=== PATIENT | male | born 1960 | race Caucasian/White ===

== ENCOUNTER → 2019-06-29 12:06 | Outpatient (BNVA) | payer SELFPAY | PROVIDERS: Visit Provider Nurse Practitioner Family | DX: J06.9 Acute upper respiratory infection, unspecified (principal); R09.81 Nasal congestion; B96.89 Other specified bacterial agents as the cause of diseases classified elsewhere | CPT/HCPCS: 87804 ==

== ENCOUNTER → 2019-07-15 12:44 | Outpatient (BNVA) | payer SELFPAY | PROVIDERS: Visit Provider Nurse Practitioner | DX: E11.9 Type 2 diabetes mellitus without complications (principal) | CPT/HCPCS: 80053; 80061; 83036 ==

== ENCOUNTER 2020-04-23 09:51 | Observation (INO) | payer SELFPAY ==
[2020-04-23] VITALS (18 sets, daily range): BP systolic 108–167; BP diastolic 71–109; PULSE 66–98; RESP 14–23; TEMP 36.1–37.6; O2SAT 91–99; BMI 37.6
--- NOTE | 2020-04-23 10:12 | CT_ITS ---
WS: [id number] CT ABDOMEN AND PELVIS WITH CONTRAST HISTORY: RLQ pain, concern for appendicitis TECHNIQUE: Imaging performed of the abdomen and pelvis with IV contrast. Single phase imaging of the abdomen. Coronal and sagittal reformats are submitted. All CT scans at [facility] use at least one of these dose optimization techniques: automated exposure control; mA and/or kV adjustment per patient size (includes targeted exams where dose is matched to clinical indication); or iterativ e reconstruction. IV CONTRAST: Omnipaque 300; 95 mL IV. Oral contrast: No DLP: 1630.31 mGy.cm COMPARISON: 10/04/2016 Lower thorax: Subsegmental patchy opacifications in the posterior RIGHT lower lobe and also the super ior segment of the LEFT lower lobe. Heart size is normal. No hiatal hernia. Liver/biliary system: Moderate hepatomegaly and hepatic steatosis. No bile duct dilatation. Portal ve in is patent. Gallbladder: Normal. No gallstones or wall thickening. No pericholecystic fluid. Pancreas: Normal. Spleen: Spleen is top normal to slightly enlarged at 13.8 cm. Adrenal glands: RIGHT adrenal 7 mm adrenal myelolipoma. Negative LEFT adrenal gland. Right kidney: Normal. Left kidney: Normal. Aorta: Moderate atherosclerosis with no aneurysm. Lymphadenopathy: None. Free fluid: None. GI tract: Mild inflammatory changes in the RIGHT lower quadrant. The appendix is dilated measuring 1. 3 cm and contains a central appendicolith. There is mild adjacent periappendiceal and pericecal infla mmatory disease. No abscess or rupture. No adenopathy. Abdominal wall: Small ventral abdominal wall hernia. Pelvis: No free fluid or adenopathy. Bones: Spondylitic disease. No fractures. CT/CT abdomen pelvis w con* [id number] IMPRESSION: 1. Acute appendicitis without rupture. 2. Moderate hepatic steatosis and hepatomegaly. 3. Top normal to slightly enlarged spleen. Notified Darrel Murdock MD at 04/23/2020 11:15 AM.
[2020-04-23] MEDS: ondansetron 2 mg/ML SDV 2 mL 4 MG IVP (10:45)
[2020-04-23] MEDS: morphine 4 mg/mL SDV 1 mL IVP (10:45)
[2020-04-23] MEDS: iohexol 300 mg/mL 100 mL Btl IV (10:52)
[2020-04-23 11:01] LABS: Basophils % 0.2 %; Eosinophils # 0.1 10^3/uL (0.0-0.8); Eosinophils % 0.6 %; Hematocrit 45.2 % (42.0-52.0); Hemoglobin 15.1 g/dL (11.7-16.6); Lymphocytes # 1.9 10^3/uL (0.8-4.8); Mean Corpuscular HGB Conc 33.4 g/dL (30.0-36.0); Mean Corpuscular Hemoglobin 29.3 pg (28.0-34.0); Mean Corpuscular Volume 87.6 fL (80-94); Mean Platelet Volume 10.3 fL (7.4-10.4); Monocytes # 0.8 10^3/uL (0.2-0.9); Monocytes % 9.5 %; Neutrophils % 65.5 %; Nucleated Red Blood Cells % 0 %; Platelet Count 249 10^3/cmm (130-400); Red Blood Count 5.16 10^6/uL (4.1-5.3); White Blood Count 8.1 10^3/uL (4.0-10.0)
[2020-04-23 11:17] LABS: Alanine Aminotransferase 19 U/L (0-41); Albumin Level 4.3 g/dL (3.5-5.2); Alkaline Phosphatase 61 IU/L (40-130); Anion Gap 15.5 (5-19); Aspartate Amino Transferase 16 U/L (0-40); Blood Urea Nitrogen 9 mg/dL (6-20); Calcium 9.5 mg/dL (8.5-10.5); Carbon Dioxide 26 mmol/L (22-29); Chloride 96 mmol/L (98-107); Globulin 2.9 g/dL (1.3-4.6); Glomerular Filtration Rate 86.4 mL/min (90-130); Glucose 145 mg/dL (65-115); Osmolality Calculated 277 mOsm/kg (285-295); Potassium 4.5 mmol/L (3.5-5.1); Sodium 133 mmol/L (136-145); Total Bilirubin 0.4 mg/dL (0.15-1.2); Total Protein 7.2 g/dL (6.6-8.7)
--- NOTE | 2020-04-23 11:32 | W.ED.ABDPA2 ---
HPI - Abdominal Pain General: Chief Complaint: Abdominal Pain Stated Complaint: RLQ PAIN Time Seen by Provider: 04/23/20 10:02 History of Present Illness: HPI narrative: Patient is a well-appearing 60-year-old male seen for worsening right lower quadrant abdominal pain and nausea which started last night. He rates the pain at 4 of 10 at rest and 10 of 10 with palpation or movement. He has never had any surgeries and has no allergies to medications. His last oral intake was last night when he had a piece of toast and water. He has had no liquid or medicine prior to arriving in the emergency department today. He endorses nausea but denies vomiting, fever, diarrhea, constipation, and has no known GI issues. He has not taken anything for his pain. He has no other acute complaints. Review of Systems General: Reports: 10 or more systems reviewed and unremarkable except in HPI and below PFSH ED PFSH: Medical History Controlled diabetes mellitus with hyperglycemia Gout, unspecified HTN, goal below 130/80 Mixed hyperlipidemia Seasonal allergies Surgical History History of colonoscopy 2018 History of tibial fracture ORIF @ [facility] 2019 History of total knee replacement left 2017 Family History Other Diabetes Hypertension Social History Smoking and tobacco status: never smoked Second hand smoke exposure: No Smoking risk assessment/counseling performed?: No Alcohol intake: never Desire information about alcohol rehabilitation?: No Counseling given: No Desire information about substance/drug rehabilitation?: No Counseling given: No Caregiver/support person: No Lives independently: Yes Household members: spouse Housing: House Marital status: Number of children: 2 service: No Current occupational status: employed History of recent travel: No Current gender identity: Male Physical Exam Const: COMMON NORMALS: no acute distress, patient oriented x3 and alert HENMT: COMMON NORMALS: normocephalic and atraumatic HEAD & SCALP: normocephalic and atraumatic Eye: COMMON NORMALS: Equal, round and reactive pupils present, EOMs intact bilaterally and no scleral icterus PUPIL: Yes Equal, round and reactive pupils present Resp: COMMON NORMALS: normal respiratory effort and No retractions Cardio: COMMON NORMALS: regular rate, regular rhythm and No murmurs present (Cardio) RATE: regular rate RHYTHM: regular rhythm GI: COMMON NORMALS: Normal to inspection, nondistended, normoactive bowel sounds present and Soft to palpation; negative for non-tender PALPATION: Yes Soft to palpation and Yes Tenderness to palpation present (GI) Details: RLQ Neuro: COMMON NORMALS: patient oriented x3 SENSORIUM/ORIENTATION: Yes alert Skin: COMMON NORMALS: no rashes or lesions noted GENERAL SKIN EXAM: no rashes or lesions noted Course Vital Signs: Vital signs: Vital Signs Temperature 98.3 F 04/23/20 15:30 Pulse Rate 77 04/23/20 15:30 Respiratory Rate 16 04/23/20 15:30 Blood Pressure 126/84 04/23/20 15:30 Pulse Oximetry 99 04/23/20 15:30 MDM - Abdominal Pain Lab Data: Lab results narrative: Patient remained hemodynamically stable throughout ED course. Pain is much better after receiving morphine. With acute appendicitis and CT confirms the diagnosis. He was given Zosyn and will be admitted to the general surgery service for definitive care. Labs: Lab Results 04/23/20 04/23/20 04/23/20 Range/Units 10:40 10:40 10:40 WBC 8.1 (4.0-10.0) 10^3/ uL RBC 5.16 (4.1-5.3) 10^6/u L Hgb 15.1 (11.7-16.6) g/dL Hct 45.2 (42.0-52.0) % MCV 87.6 (80-94) fL MCH 29.3 (28.0-34.0) pg MCHC 33.4 (30.0-36.0) g/dL RDW 12.0 L (12.1-15.1) % Plt Count 249 (130-400) 10^3/c mm MPV 10.3 (7.4-10.4) fL Neut % (Auto) 65.5 % Lymph % (Auto) 24.0 % Swift % (Auto) 9.5 % Eos % (Auto) 0.6 % Baso % (Auto) 0.2 % Neut # (Auto) 5.30 (1.8-7.7) 10^3/u L Lymph # (Auto) 1.9 (0.8-4.8) 10^3/u L Swift # (Auto) 0.8 (0.2-0.9) 10^3/u L Eos # (Auto) 0.1 (0.0-0.8) 10^3/u L Baso # (Auto) 0.0 (0.0-0.1) 10^3/u L Nucleated RBC % (a uto) 0 % Nucleated RBCs # 0.0 /100WBC Sodium 133 L (136-145) mmol/L Potassium 4.5 (3.5-5.1) mmol/L Chloride 96 L (98-107) mmol/L Carbon Dioxide 26 (22-29) mmol/L Anion Gap 15.5 (5-19) BUN 9 (6-20) mg/dL Creatinine 0.9 (0.7-1.2) mg/dL GFR Calculation 86.4 L (90-130) mL/min Glucose 145 H (65-115) mg/dL Calculated Osmolal ity 277 L (285-295) mOsm/k g Calcium 9.5 (8.5-10.5) mg/dL Total Bilirubin 0.4 (0.15-1.2) mg/dL AST 16 (0-40) U/L ALT 19 (0-41) U/L Alkaline Phosphata se 61 (40-130) IU/L Total Protein 7.2 (6.6-8.7) g/dL Albumin 4.3 (3.5-5.2) g/dL Globulin 2.9 (1.3-4.6) g/dL SARS-CoV-2 Ag (Rap id) Negative (Negative) Discharge Plan Discharge Patient Disposition: Admitted As Inpatient Admit Provider: Genaro Pool Coding Level of Care Code ED Packing Line Worker for Araceli Mcdowell
[2020-04-23 11:40] LABS: SARS Covid-2 Antigen Negative (Negative)
[2020-04-23] MEDS: sodium chloride 0.9% 1,000 ML 30 ML IV (12:10)
--- NOTE | 2020-04-23 12:12 | ANES.PREANE2 ---
Pre-Anesthetic Assessment Pre-Anesthetic Assessment: Height/Weight: Height 1.75 m Weight 115.666 kg Temp Pulse Resp BP Pulse Ox 98.1 F 80 18 163/94 95 04/23/20 09:56 04/23/20 11:43 04/23/20 11:43 04/23/20 11:43 04/23/20 11:43 Proposed Procedure: Operation Date: 04/23/20 15:00 Proposed Procedures p Laparoscopic Appendectomy(Not Applicable) - Genaro Pool MD Was Beta Lisa taken within 24 hours: Yes Social: Social History: No alcohol and No tobacco Exam: Pre-Anes Outpt Exam: alert, oriented x 3, clear to auscultation bilaterally and regular rate & rhythm Airway: Submandibular: WNL Cervical ROM: WNL MP: 2 Additional comments: poor dentition with multiple missing teeth Pulmonary: Pulmonary: None reported CV/HEM: CV/HEM: HTN : : None reported Hepatic: Hepatic: None reported GI: GI: None reported Metabolic: Metabolic: DM, Hyperlipidemia and Morbid obesity Comments: Gout Musc/skel: Musc/skel: None reported Neuropsych: Neuropsych: None reported Anesthetic Plan: ASA status: 3E Anesthesia: General PFSH Anesthesia PFSH: Medical History Controlled diabetes mellitus with hyperglycemia Gout, unspecified HTN, goal below 130/80 Mixed hyperlipidemia Seasonal allergies Surgical History History of colonoscopy 2018 History of tibial fracture ORIF @ [facility] 2019 History of total knee replacement left 2017 Family History Other Diabetes Hypertension Social History Smoking and tobacco status: never smoked Second hand smoke exposure: No Smoking risk assessment/counseling performed?: No Alcohol intake: never Desire information about alcohol rehabilitation?: No Counseling given: No Desire information about substance/drug rehabilitation?: No Counseling given: No Caregiver/support person: No Lives independently: Yes Household members: spouse Housing: House Marital status: Number of children: 2 service: No Current occupational status: employed History of recent travel: No Current gender identity: Male Data Anesthesia CBC & Chem 7: 04/23/20 10:40 04/23/20 10:40 Other Labs: Laboratory Results - last 48 hr 04/23/20 04/23/20 04/23/20 10:40 10:40 10:40 WBC 8.1 RBC 5.16 Hgb 15.1 Hct 45.2 MCV 87.6 MCH 29.3 MCHC 33.4 RDW 12.0 L Plt Count 249 MPV 10.3 Neut % (Auto) 65.5 Lymph % (Auto) 24.0 Schleicher % (Auto) 9.5 Eos % (Auto) 0.6 Baso % (Auto) 0.2 Neut # (Auto) 5.30 Lymph # (Auto) 1.9 Schleicher # (Auto) 0.8 Eos # (Auto) 0.1 Baso # (Auto) 0.0 Nucleated RBC % (auto) 0 Nucleated RBCs # 0.0 Sodium 133 L Potassium 4.5 Chloride 96 L Carbon Dioxide 26 Anion Gap 15.5 BUN 9 Creatinine 0.9 GFR Calculation 86.4 L Glucose 145 H Calculated Osmolality 277 L Calcium 9.5 Total Bilirubin 0.4 AST 16 ALT 19 Alkaline Phosphatase 61 Total Protein 7.2 Albumin 4.3 Globulin 2.9 SARS-CoV-2 Ag (Rapid) Negative Cardiac Studies: No Data to Display
--- NOTE | 2020-04-23 12:12 | SUR.PHASEI ---
PT TO OPS 12 AWAKE ALERT RECIEVED PER W/C FAMILY MEMBER AT BEDSIDE PT DRESSED SELF IN GOWN, ANESTHESIA AND DR BEE AT BEDSIDE
--- NOTE | 2020-04-23 12:17 | P.HP_ITS ---
Providers/Chief Complaint Admitting Physician: Genaro Pool MD Chief Complaint: RLQ PAIN History of Present Illness Chief Complaint: Belly pain History of present illness:Mr Lior De Los Santos is a 60 year old male presents to the emergency department with worsening abdominal pain that started yesterday and got worse and started shifting towards the right side of the abdomen. Associated with nausea but no vomiting and no dysuria or diarrhea.Patient was further evaluated emergency department and was found to have acute appendicitis on the CT scan. Patient otherwise denies any fevers or chills. Patient had a colonoscopy few years ago by me and there were some polyps removed. General surgery was consulted for further evaluation and intervention. Review of Systems General: Reports: 10 or more systems reviewed and unremarkable except in HPI and below Medications/Allergies Home Medications Medication Instructions Recorded Confirmed Last Taken Type cetirizine 10 mg capsule 10 mg PO DAILY 06/29/19 11/21/19 Unknown History coenzyme Q10 75 mg capsule 75 mg PO DAILY 06/29/19 11/21/19 Unknown History famotidine 20 mg tablet 20 mg PO DAILY 06/29/19 11/21/19 Unknown History Lasix 20 mg PO PRN PRN 04/23/20 04/23/20 Unknown History aspirin 81 mg PO DAILY@05 04/23/20 04/23/20 04/22/20 History fenofibrate nanocrystallized 145 mg PO DAILY@04/23/20 04/23/20 04/22/20 History lisinopril 40 mg PO DAILY@05 04/23/20 04/23/20 04/22/20 History metformin 500 mg PO BID@04/23/20 04/23/20 04/22/20 History metoprolol tartrate 25 mg PO BID@04/23/20 04/23/20 04/22/20 History Allergies Allergy/AdvReac Type Severity Reaction Status Date / Time No Known Allergies Allergy Verified 06/29/19 12:00 PFSH Acute PFSH: Medical History Controlled diabetes mellitus with hyperglycemia Gout, unspecified HTN, goal below 130/80 Mixed hyperlipidemia Seasonal allergies Surgical History History of colonoscopy 2018 History of tibial fracture ORIF @ [facility] 2019 History of total knee replacement left 2017 Family History Other Diabetes Hypertension Social History Smoking and tobacco status: never smoked Second hand smoke exposure: No Smoking risk assessment/counseling performed?: No Alcohol intake: never Desire information about alcohol rehabilitation?: No Counseling given: No Desire information about substance/drug rehabilitation?: No Counseling given: No Caregiver/support person: No Lives independently: Yes Household members: spouse Housing: House Marital status: Number of children: 2 service: No Current occupational status: employed History of recent travel: No Current gender identity: Male Vitals/I&O/Wt Last Vital Signs Temp 97.8 F 04/23/20 12:14 Pulse 76 04/23/20 12:14 Resp 16 04/23/20 12:14 BP 156/92 04/23/20 12:14 Pulse Ox 96 04/23/20 12:14 Weight last 48 hrs Weight 255 lb Physical Exam Narrative: EXAM NARRATIVE: Patient is conscious alert oriented X3 BMI 38 Head and neck examination PERRLA no masses no cervical lymphadenopathy no jaundice Cardiac examination audible S1-S2 no murmurs no gallops no arrhythmias Chest is clear bilateral,abscence of Rhonchi or wheezes,no surgical emphysema Abdomen nontender except at the right lower quadrant with maximal tenderness at McBurney's point consistent with acute appendicitis nondistended soft no organomegaly guarding or rigidity/no signs of peritonitis. Stable chronically incarcerated umbilical hernia Obese Extremities no cyanosis no clubbing no edema Data : 04/23/20 10:40 04/23/20 10:40 A&P Assessment and plan (1) Acute appendicitis: After thorough history physical examination and reviewing the chart and images with my personal interpretion of the CT scan of the abdomen pelvis, I counseled the patient for laparoscopic appendectomy possible open. Indications, risks, benefits and alternatives were all discussed with the christina ent and did agree to proceed. Rationale was carefully and clearly discussed with the patient.Appropriate informed consent have been reviewed and signed Status: Acute Attestations Medical Necessity Statement*: Observation status for pain control and IV antibiotic therapy Time Spent in Patient Care: (>than 50% of time spent in counselling and/or direct pt care on unit) . Coding Level of Care Code Acute Cement Contractor for [facility] Fwd Diagnoses Acute appendicitis K35.80
[2020-04-23] MEDS: piperacillin-tazobactam 3.375 GM in sodium chloride 0.9% (plus) 50 ML IV ×2 (13:01→18:40)
[2020-04-23] MEDS: lidocaine 2% INJ 20 mL INJECTION (13:20)
--- NOTE | 2020-04-23 14:12 | P.OP_ITS ---
Operative Report Date of procedure: April 23, 2020 Pre-op Diagnosis: Acute appendicitis Post-op diagnosis: other (Chronic incarcerated umbilical hernia with omental fat and acute retrocecal appendicitis with suppuration) Procedure Done: Laparoscopic appendectomy and open umbilical hernia repair primarily done Specimens removed/disposition: Umbilical hernial content Appendix Surgeon: Genaro Pool Butadiene Convertor Operator: Surgical karly Triplett Circulating nurse Ronald Anesthesia: General (health and physical education teacher Yanique) Estimated blood loss (mL): 15 Condition: stable Disposition: observation Brief History: After thorough history physical examination and reviewing the chart and images with my personal interpretion, I counseled the patient for laparoscopic appendectomy possible open. Indications, risks, benefits and alternatives were all discussed with the patient and did agree to proceed. Rationale was carefully and clearly discussed with the patient.Appropriate informed consent have been reviewed and signed Procedure: Patient after being identified in the holding area and asked to void urine, and informed consent per chart ,patient was then taken back to the OR placed in supine position got intubated by anesthesia left arm was tucked tucked ,Timeout was done verifying the patient's name/date of /planned procedure and destination after the procedure, all were in agreement., preoperative antibiotics administered per protocol. prep and drape of the abdomen was done under the usual sterile technique. Started by longitudinal skin incision supraumbilical chronic incarcerated omental fat was appreciated dissection was done and transfixing 2-0 silk sutures were used part of the omental fat was excised and sent for permanent pathology at this point there were no adhesions and I was able to place a Crump trocar technique safe entry to the abdominal cavity was achieved verified by using 10 mm zero degree laparoscopy, switched to a 30? scope under direct visualization a suprapubic 5 mm trocar was inserted followed by another 5 mm trocar inserted in the left lower quadrant, I was able to position the patient in an T Hodges and left side down, dissection of the retrocecal acutely inflamed appendix with suppuration there was some adhesions towards the lateral pelvic wall that was taken down by sharp and blunt dissection, attention was deviated to the healthy base of the appendix where I had to switch the camera to 5 mm 30? scope got introduced through the left lower quadrant and through the Crump trocar under direct visualization a GI stapler 45 mm blue load was applied at the healthy part of the base of the appendix, and an Endoloop PDS was applied onto the mesoappendix for control , the appendix was then retrieved in an Endo Catch bag, final survey was done of the abdomen and pelvis , irrigation with warm saline, and suction was obtained, were mercury fluid like in the pelvis due to reaction from the inflamed appendix. Multiple 5 mm clips were applied onto the mesoappendix as well as the appendectomy staple line and a right lateral pelvic wall for minimal oozing. Adhesions towards the left side of the colon at the sigmoid region was appreciated but that was avoided during trocar placement Final look laparoscopy was done showing no other abnormalities or injuries, all trocars were taken out under direct visualization then the supraumblical hernial defect site was closed by multiple interrupted figure of 8 PDS sutures under direct vision, followed by 3-0 Vicryl continuous fashion,followed by skin closure using skin nikki all trocar site incisions. infiltration of local lidocaine 2% was done to all incision sites.Dry dressing was applied. Count was completed at the end of the procedure for Louise , sponges and instruments Patient tolerated the procedure well and was transferred to the recovery area after extubation. I was present for the whole entire procedure
[2020-04-23] MEDS: sodium chloride 0.9% 1,000 ML 100 ML IV (15:16)
--- NOTE | 2020-04-23 16:40 | ANE.PACU2 ---
Inpatient post-anesthesia follow up: Airway intact: Yes Vital signs: Temperature 98.3 F Pulse Rate [Monito r] 89 Pulse Rate 77 Respiratory Rate 16 Blood Pressure [Ri ght Arm] 167/109 Blood Pressure 126/84 Pulse Oximetry 99 Oxygen Delivery Me thod Nasal Cannula Oxygen Flow Rate 3 Fraction of Inspir ed Oxygen Hydration adequate: Yes Nausea and vomiting: No Pain level: 4 Mental status: Baseline
[2020-04-23 17:37] LABS: Glucose Point of Care 146 mg/dL (70-110)
[2020-04-23] MEDS: morphine 4 mg/mL SDV 1 mL 2 MG IVP (18:54)
[2020-04-24] VITALS (7 sets, daily range): BP systolic 119–170; BP diastolic 74–95; PULSE 59–80; RESP 18; TEMP 36.4–37.4; O2SAT 93–95
[2020-04-24] MEDS: HYDROcodone-acetaminophen 5-325 mg Tablet 1 TAB PO ×3 (01:30→15:36)
[2020-04-24] MEDS: piperacillin-tazobactam 3.375 GM in sodium chloride 0.9% (plus) 50 ML IV ×2 (01:30→11:41)
[2020-04-24 02:41] LABS: Hemoglobin 12.8 g/dL (11.7-16.6)
[2020-04-24] MEDS: sodium chloride 0.9% 1,000 ML 100 ML IV (03:03)
[2020-04-24 03:14] LABS: Anion Gap 14.8 (5-19); Blood Urea Nitrogen 8 mg/dL (6-20); Calcium 8.7 mg/dL (8.5-10.5); Carbon Dioxide 25 mmol/L (22-29); Chloride 95 mmol/L (98-107); Glomerular Filtration Rate 86.4 mL/min (90-130); Glucose 164 mg/dL (65-115); Osmolality Calculated 274 mOsm/kg (285-295); Potassium 3.8 mmol/L (3.5-5.1); Sodium 131 mmol/L (136-145)
--- NOTE | 2020-04-24 06:30 | P.SS_ITS ---
Short Stay Summary Providers Date of Admit/Discharge: 04/24/20 Attending Provider: Genaro Pool MD Chief Complaint: RLQ PAIN HPI History of Present Illness Mr Lior De Los Santos is a 60 year old male presents to the emergency department with worsening abdominal pain and was found to have acute appendicitis on the CT scan. Patient was taken for surgery and undergone laparoscopic appendectomy and open umbilical hernia repair primarily without mesh. Review of Systems General: Reports: 10 or more systems reviewed and unremarkable except in HPI and below Home Meds/Allergies Home Medications and Allergies Home Medications Medication Instructions Recorded Confirmed Type cetirizine 10 mg capsule 10 mg PO DAILY@05 06/29/19 04/23/20 History coenzyme Q10 75 mg capsule 75 mg PO DAILY@06/29/19 04/23/20 History famotidine 20 mg tablet 20 mg PO DAILY@06/29/19 04/23/20 History Lasix 20 mg PO PRN PRN 04/23/20 04/23/20 History aspirin 81 mg PO DAILY@04/23/20 04/23/20 History fenofibrate nanocrystallized 145 mg PO DAILY@04/23/20 04/23/20 History lisinopril 40 mg PO DAILY@04/23/20 04/23/20 History metformin 500 mg PO BID@04/23/20 04/23/20 History metoprolol tartrate 25 mg PO BID@,04/23/20 04/23/20 History Allergies Allergy/AdvReac Type Severity Reaction Status Date / Time No Known Allergies Allergy Verified 06/29/19 12:00 PFSH Acute PFSH: Medical History (Updated 04/24/20 @ 08:18 by Genaro Pool MD) Controlled diabetes mellitus with hyperglycemia Gout, unspecified HTN, goal below 130/80 Mixed hyperlipidemia Seasonal allergies Surgical History History of colonoscopy 2018 History of tibial fracture ORIF @ [facility] 2019 History of total knee replacement left 2017 Family History Other Diabetes Hypertension Social History Smoking and tobacco status: never smoked Second hand smoke exposure: No Smoking risk assessment/counseling performed?: No Alcohol intake: never Desire information about alcohol rehabilitation?: No Counseling given: No Desire information about substance/drug rehabilitation?: No Counseling given: No Caregiver/support person: No Lives independently: Yes Household members: spouse Housing: House Marital status: Number of children: 2 service: No Current occupational status: employed History of recent travel: No Current gender identity: Male Vitals/I&O/Wt Last Vital Signs Temp 97.7 F 04/24/20 04:51 Pulse 75 04/24/20 05:46 Resp 18 04/24/20 04:51 BP 149/95 04/24/20 04:51 Pulse Ox 94 04/24/20 04:51 04/23/20 04/23/20 04/24/20 14:59 22:59 06:59 Intake Total 550 / 550 50 / 600 1500 / 2100 Output Total 400 / 410 1900 / 2310 Balance 540 / 540 -350 / 190 -400 / -210 Weight last 48 hrs Weight 255 lb Physical Exam Narrative: EXAM NARRATIVE: Patient is conscious alert oriented X3 BMI 37.7 Head and neck examination PERRLA no masses no cervical lymphadenopathy no jaundice Cardiac examination audible S1-S2 no murmurs no gallops no arrhythmias Chest is clear bilateral,abscence of Rhonchi or wheezes,no surgical emphysema Abdomen nontender except mildly at the incision sites, nondistended soft no organomegaly guarding or rigidity/no signs of peritonitis Extremities no cyanosis no clubbing no edema Hospital Course Discharge Summary 60 years old gentleman undergone uneventful laparoscopic appendectomy and open umbilical hernia repair without mesh,patient continues to have good urine output and tolerating p.o. intake. Pain is under control and vital signs are stable except for some hypertension and blood pressure medication has been resumed. Appropriate glycemic control and patient was placed on sliding scale of insulin. Patient is encouraged to ambulate and has been having good urine output and passing gas. Will advance diet as tolerated and plan to discharge home today on p.o. antibiotics and pain medications. With the plan to follow-up in surgery office in 2 weeks. SSS Data Data Completed and Pending: Completed Studies During Hospitalization Category Date Time Status CT abdomen pelvis w con* [id number] Urge nt Cat Scan 04/23/20 10:12 Completed Pending at discharge Category Date Time Status ES surgery / GI i mages Routine Exams 04/23/20 12:15 Taken Basic Metabolic P magy AM LABS Lab 04/25/20 04:00 Ordered Basic Metabolic P magy AM LABS Lab 04/26/20 04:00 Ordered Hemoglobin and He matocrit AM LABS Lab 04/25/20 04:00 Ordered Hemoglobin and He matocrit AM LABS Lab 04/26/20 04:00 Ordered Pathology: Surgic al [PTH] Routine Pth 04/23/20 13:42 Received Diagnoses at Discharge Discharge Diagnosis (1) Acute appendicitis: Status: Acute Permanent problem details: Condition resolved and simple to be discharged on oral antibiotics and pain medication (2) Umbilical hernia without mention of obstruction or gangrene: Status: Resolved Permanent problem details: Restrictions with regard to weight lifting, first weeks after surgery nothing more than 10 pounds in 6 weeks to follow not more than 25 pounds. Discharge Plan Discharge Patient Disposition: Home Condition: Stable Prescriptions: [place] 5-325 mg tablet 1 tab PO Q6H PRN (Reason: pain) Qty: 28 RF: 0 Augmentin 875-125 mg tablet 1 tab PO Q12H 7 Days Qty: 14 RF: 0 Continued Zyrtec 10 mg capsule 10 mg PO DAILY@05 RF: 0 famotidine [Pepcid] 20 mg tablet 20 mg PO DAILY@05 RF: 0 Ultra CoQ10 75 mg capsule 75 mg PO DAILY@05 RF: 0 aspirin 81 mg Tablet,Chewable 81 mg PO DAILY@05 RF: 0 metformin 500 mg tablet 500 mg PO BID@,17 RF: 0 Lasix 20 mg tablet 20 mg PO PRN PRN (Reason: edema) RF: 0 lisinopril 40 mg tablet 40 mg PO DAILY@05 RF: 0 metoprolol tartrate 25 mg tablet 25 mg PO BID@,17 RF: 0 fenofibrate nanocrystallized 145 mg tablet 145 mg PO DAILY@05 RF: 0 Discharge Orders: Discharge Order (Routine); Ordered 04/24/20 Ordered By: Genaro Pool Referrals: Genaro Pool MD [Physician] - (Please call Monday to make an appointment to be seen within [address] Pool office. ) Discharge Diet: Advance as tolerated Discharge Activity: Limit activity as instructed Patient Instructions: Hydrocodone/Acetaminophen (By mouth), Amoxicillin/Clavulanate Potassium (By mouth), Laparoscopic Appendectomy (DC) Activity Restrictions/Additional Instructions: 1. Patient can shower after 48 hours from surgery 2. Remove Dermabond 7 to 10 days after surgery, if there is a secondary dressing can take down after 48 hours. 3. Up and walking as tolerated 4. Do lift more than 5 pounds first 2 weeks after surgery and not more than 25 pounds 6 to 8 weeks after surgery. 5. Do not operate heavy machinery or drive while using pain medications. 6.Contact the office or return to the ER for worsening nausea vomiting fevers or chills, or noticing any redness around incision sites or discharge. Attestations Medical Necessity Statement*: Observation status for pain control and intravenous antimicrobial therapy Time Spent in Patient Care*: less than 30 min Specific Discharge Activities: Specific discharge activities: educating patient and educating and/or supporting family/caregiver Status at Discharge: Cognitive status at discharge: cognitively intact , Behavioral status at discharge: cooperative , Functional status at discharge: independent ambulation Overall status at discharge: patient is progressing back to baseline Quality Metrics Clinical Quality Measures: During this hospital stay, did patient experience: None Coding Level of Care Code Acute Prepared Foods Supervisor for [facility] Fwd Diagnoses Acute appendicitis K35.80 Umbilical hernia without mention of obstruction or gangrene K42.9
[2020-04-24 06:31] LABS: Glucose Point of Care 179 mg/dL (70-110)
[2020-04-24] MEDS: lisinopril 20 mg Tablet 40 MG PO (09:02)
--- NOTE | 2020-04-24 09:45 | PC.CHAP ---
Pastoral Care Encounter/Spiritual Assessment Type of Contact [] Declined cellophane wrapping examiner visit [] Patient/Family/Request visit [] Outpatient visit [] Follow-up visit [] Physician referral [] Code/Alert [] Routine visit [] Staff referral [] Actively dying [] Patient sleeping [] Family support [] [] Out of room [] Palliative care [] [] Receiving care in room [] Pre-surgical visit [] Trauma [] Long length of stay [] ICU visit [] Other: Relational/Emotional Strength [x] Patient feels connected with others/family/visitors/staff [] Distress [] Loneliness/isolation [] Abandonment Spirituality of Patient [x] Person of Nedra [] Attends Jain of their Nedra [] Believes in Prayer [] Reads Bible or Rastafari materials [] There are Spiritual issues to be addressed Volunteer Services Supervisor Interventions [x] Prayer [x] Active listening [] Non-anxious presence [] Spiritual/emotional support [] Crisis/trauma care [] Spiritual counseling [] Bereavement support [] Provided bereavement packet [] Provided Bible/devotional materials [] Provided toy/stuffed animal, coloring book to patient or family member [] Provided Communion [] Anointing/[place] [] Salvation []x Completed spiritual assessment [] Other: Impact on Illness or Injury [] Angry [] Fearful [] Anxious [] Often cries [] Exhaustion [] Unable to work [] Unable to attend muslim [] Unable to walk/stand [] Unable to read [] Unable to drive [] Unable to eat/drink [] Unable to sleep [] Unable to be with family [] Patient intubated [] Other: Summarywants to go home Time spent with patient 10 min
== END 2020-04-24 17:57 | disposition home or self-care (01) ==
LOC: ER 11:43 → MEDSURG 11:54
PROVIDERS: Admitting Provider Surgery; Emergency Provider Student in an Organized Health Care Education/Training Program; Visit Provider Surgery
PROC: 0DTJ4ZZ Resection of Appendix, Percutaneous Endoscopic Approach (ICD-10-PCS; CPT 44970; principal; 2020-04-23 15:00)
PROC: (CPT 44970; 2020-04-23 15:00)
DX: K35.80 Unspecified acute appendicitis (principal); K42.9 Umbilical hernia without obstruction or gangrene; E11.9 Type 2 diabetes mellitus without complications; Z79.84 Long term (current) use of oral hypoglycemic drugs; I10 Essential (primary) hypertension; E78.2 Mixed hyperlipidemia; Z79.82 Long term (current) use of aspirin; E66.01 Morbid (severe) obesity due to excess calories; Z68.37 Body mass index [BMI] 37.0-37.9, adult
CPT/HCPCS: 44970; 49585; 12345; 36415; 36416; 74177; 80048; 80053; 82962; 85014; 85018; 85025; 87426; 88302; 88304; 96361; 96365; 96366; 96372; 96375; 99283; 99285; G0378; J0131; J0330; J1815; J2270; J2370; J2405; J2543; J2704; J2710; J3010; J3490; J7030; Q9967

== ENCOUNTER 2020-05-20 10:00 | Outpatient (CLI) | payer SELFPAY ==
--- NOTE | 2020-05-22 09:51 | ONC CON_ITS ---
Dr. Blanco New Patient Note Patient: Lior De Los Santos Unit #: [id number]: 1960 Dicatated By: Chela Blanco M.D.Date of Visit: May 20, 2020 Onc MED New Patient/Consult Referring Physician: Dr. JEANIE BEE M.D. History of Present Illness: Mr. Lior De Los Santos, is a 60-year-old gentleman with a history of chronic but off and on diarrhea for the last 4 years or more, initially it was thought could be due to Metformin and when Metformin was stopped diarrhea got better and as per patient Metformin was restarted and he continued to have off and on diarrhea and then again Metformin was discontinued recently but diarrhea did not improve. Patient denies any mucus or blood in his stools, denies any abdominal pain, denies any fever or chills, as per patient usually is 3-4 loose BMs per day. As per patient he was recently diagnosed with acute appendicitis for which on April 23, 2020 he underwent laparoscopic appendicectomy and umbilical hernia repair without mesh placement. Patient tolerated procedure well and pathology noticed incidental finding of well-differentiated neuroendocrine tumor size but 0.5 cm in greatest dimension with clear surgical margins with very low proliferative index e.g 0 mitosis noted in 42 high-power everett, no lymphovascular involvement, no lymph node was submitted so it was pT1 (less than 2 cm), NX Patient has recovered very well from the surgery denies any specific complaints today no abdominal pain, no fever chills, no nausea or vomiting, no jaundice, no facial flushing, no bronchial wheezing, no fluctuating hypertension but patient has history of hypertension which is under control with the current antihypertensive Patient denies smoking or alcohol use and his past medical history significant for noninsulin-dependent diabetes mellitus, gout, mixed hyperlipidemia. Last colonoscopy was done in 2018 was unremarkable History of tibial fracture status post ORIF in 2019 and history of total knee replacement left knee in 2017. Patient never smoked and no alcohol use Past Medical History: Mr. Meneses medical history consists of gout, hyperlipidemia, hypertension, type II diabetes, and umbilical hernia. Past Surgical History: Mr. Meneses surgical/procedural history consists of appendectomy, ORIF tibia in 2019, colonoscopy in 2018, and left total knee replacement in 2017. Medications: Aspirin 1 Tablet (of 81 mg) Tablet, enteric coated Oral daily, Cetirizine HCl 1 Tablet (of 10 mg) Oral daily, Famotidine 1 Tablet (of 20 mg) Oral b.i.d., Fenofibrate 1 Tablet (of 145 mg) Oral daily, Lisinopril 1 Tablet (of 40 mg) Oral daily, metFORMIN HCl 1 Tablet (of 500 mg) Oral b.i.d., Metoprolol Tartrate 1 Tablet (of 25 mg) Oral b.i.d., Vitamin B12 1 Tablet Oral daily, Vitamin C 1 Capsule Oral daily, Vitamin D3 3 Tablet (of 25 mcg ) Oral daily, Zinc 1 Tablet Oral daily Allergies: No Known Allergies. Social History: Mr. De Los Santos is . Mr. De Los aSntos has never smoked. He has no history of drinking. Family History: There is no documented family history. Review Of Symptoms: Constitutional - Appetite is good and weight is stable. No fever or hot flashes. nergy level is fair. Positive for night sweats, ENMT - Positive for sinus congestion/drainage. No mouth sores. No sore throat or difficulty swallowing, Hematologic/Lymphatic - No abnormal bruising or bleeding, Respiratory - No shortness of breath. No cough. No pleuritic pain or hemoptysis, Cardiovascular - No angina pain. No palpitations, Gastrointestinal - No nausea or vomiting. No heartburn or acid reflux. Positive for diarrhea, no constipation. No blood in the stool or black stools, Genitourinary (M) - No dysuria or hematuria. No urinary frequency. No urgency or incontinence, Musculoskeletal - No joint or bone pain, Neurologic - No headache or dizziness. No numbness or tingling. No other focal neurologic symptoms, Psychiatric - No anxiety or depression. No insomnia. Pt reports high stress levels at present. Vital Signs: Performed on May 20, 2020 11:16: 0, 37.75 (HIGH), 2.29 sq.m, 69 in, 96 %, 71 /min, 16 /min, 150/90 mm(hg) (HIGH), 98.0 F (LOW), and 255.6 lbs (HIGH). Performance Status: 0 - Fully active, able to carry on all predisease activities without restrictions. (ECOG) Physical Examination: ENMT - No mouth sores, no thrush, no jaundice, Respiratory - Lungs are clear to auscultation, Cardiovascular - Regular rate and rhythm of heart, Abdomen - Soft, bowel sounds present, Extremities - No visible edema or rash. Lab/Imaging: Most recent lab results are not available for this patient. 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 0 mitosis noted in 42 high-power everett, very low KI 67 index. No lymphovascular invasion seen, clear surgical margins pT1 (less than 2 cm), it was an incidental finding so no lymph nodes were submitted, NX, stage I Chronic diarrhea, etiology unclear questionable biochemically active carcinoid Hypertension Plan: Discussed with patient regarding his pathology, patient was recently diagnosed with well-differentiated neuroendocrine tumor involving distal part of his appendix, as mentioned earlier, patient underwent laparoscopic appendicectomy for acute appendicitis. Case was discussed with pathology, patient has a very low-grade, subcentimeter, well-differentiated neuroendocrine tumor with very low proliferative index and clear surgical margins will make him very low risk for recurrence, as per NCCN guidelines follow-up in [address] scan or observation may be appropriate But concern is his chronic diarrhea and etiology is unclear, initially, it was thought due to Metformin and it did improve with discontinuation of Metformin, And recur with initiation of Metformin ,as per patient, recently when Metformin was discontinued his Diarrhea did not improve, so there is a possibility, he may have biochemically active neuroendocrine lesion. So we will consider work-up including serum serotonin level, chromogranin A level, 24-hour urine for 5-HIAA, gastrin level and if it shows any abnormality, then will consider dotatate scan to identify any other lesions and may consider Sandostatin to control his diarrhea otherwise will observe and see him 6 to 12 months for follow-up Discussed with patient and he expressed full understanding and he will return to clinic in 2 weeks with CBC CMP and with above-mentioned work-up Signed By: Chela Blanco M.D. <<Signature on File>>
[2020-05-24 15:54] LABS: Chromogranin A 140 ng/mL (25-140); Serotonin Whole Blood 105 ng/mL (56-244)
[2020-05-26 19:27] LABS: 24 Hour Urine Volume 1400 mL; 5-HIAA, 24 Hour Urine 4.3 mg/24 h (<=6.0)
== END 2020-05-20 10:01 | disposition home or self-care (01) ==
LOC: ONCMED 10:07
PROVIDERS: PCP Nurse Practitioner; Visit Provider Internal Medicine Hematology & Oncology
DX: C7A.8 Other malignant neuroendocrine tumors (principal); K52.9 Noninfective gastroenteritis and colitis, unspecified; I10 Essential (primary) hypertension
CPT/HCPCS: 36415; 82941; 83497; 84260; 86316; 99204

== ENCOUNTER 2020-05-28 05:40 | Outpatient (CLI) | payer SELFPAY ==
--- NOTE | 2020-05-28 16:46 | ONC FU_ITS ---
Dr. Blanco follow up note Patient: Lior De Los Santos Unit #: [id number]: 1960 Dicatated By: Chela Blanco M.D.Date of Visit:May 28, 2020 Onc Med Follow-up/Prog Note History of Present Illness: Mr. Lior De Los Santos, is a 60-year-old gentleman with a history of chronic but off and on diarrhea for the last 4 years or more, initially it was thought could be due to Metformin and when Metformin was stopped diarrhea got better and as per patient Metformin was restarted and he continued to have off and on diarrhea and then again Metformin was discontinued recently but diarrhea did not improve. Patient denies any mucus or blood in his stools, denies any abdominal pain, denies any fever or chills, as per patient usually is 3-4 loose BMs per day. As per patient he was recently diagnosed with acute appendicitis for which on April 23, 2020 he underwent laparoscopic appendicectomy and umbilical hernia repair without mesh placement. Patient tolerated procedure well and pathology noticed incidental finding of well-differentiated neuroendocrine tumor size but 0.5 cm in greatest dimension with clear surgical margins with very low proliferative index e.g 0 mitosis noted in 42 high-power [place], no lymphovascular involvement, no lymph node was submitted so it was pT1 (less than 2 cm), NX, Lab work-up done on May 20, 2020 showed creatinine 105 normal being 56-244, chromogranin A level 140, normal being 25-1 40, 24-hour urine for 5-HIAA 4.3, gastrin level 25, normal being less than 100 Patient has recovered very well from the surgery denies any specific complaints today no abdominal pain, no fever chills, no nausea or vomiting, no jaundice, no facial flushing, no bronchial wheezing, no fluctuating hypertension but patient has history of hypertension which is under control with the current antihypertensive Patient denies smoking or alcohol use and his past medical history significant for noninsulin-dependent diabetes mellitus, gout, mixed hyperlipidemia. Last colonoscopy was done in 2018 was unremarkable History of tibial fracture status post ORIF in 2019 and history of total knee replacement left knee in 2017. Patient never smoked and no alcohol use Came for follow-up, denies any specific complaints except off and on diarrhea but improving, no melena or hematochezia, no nausea or vomiting,, no jaundice, no abdominal pain, no night sweats, no wheezing, no facial flushing, no uncontrolled hypertension, no weight loss. Medications: Aspirin 1 Tablet (of 81 mg) Tablet, enteric coated Oral daily, Cetirizine HCl 1 Tablet (of 10 mg) Oral daily, Famotidine 1 Tablet (of 20 mg) Oral b.i.d., Fenofibrate 1 Tablet (of 145 mg) Oral daily, Lisinopril 1 Tablet (of 40 mg) Oral daily, metFORMIN HCl 1 Tablet (of 500 mg) Oral b.i.d., Metoprolol Tartrate 1 Tablet (of 25 mg) Oral b.i.d., Vitamin B12 1 Tablet Oral daily, Vitamin C 1 Capsule Oral daily, Vitamin D3 3 Tablet (of 25 mcg ) Oral daily, Zinc 1 Tablet Oral daily Allergies: No Known Allergies. Review of Systems: Constitutional - Appetite is good and weight is stable. No fever or hot flashes. nergy level is fair. Positive for night sweats, ENMT - Positive for sinus congestion/drainage. No mouth sores. No sore throat or difficulty swallowing, Hematologic/Lymphatic - No abnormal bruising or bleeding, Respiratory - No shortness of breath. No cough. No pleuritic pain or hemoptysis, Cardiovascular - No angina pain. No palpitations, Gastrointestinal - No nausea or vomiting. No heartburn or acid reflux. Positive for diarrhea, no constipation. No blood in the stool or black stools, Genitourinary (M) - No dysuria or hematuria. No urinary frequency. No urgency or incontinence, Musculoskeletal - No joint or bone pain, Neurologic - No headache or dizziness. No numbness or tingling. No other focal neurologic symptoms, Psychiatric - No anxiety or depression. No insomnia. Pt reports high stress levels at present. Vital Signs: Performed on May 28, 2020 08:18 Height - 69.00 in Weight - 258.8 lbs (HIGH) BSA - 2.30 sq.m BMI - 38.22 (HIGH) Temperature - 97.0 F (LOW) Pulse - 67 /min Respiration - 18 /min BP - 165/95 mm(hg) (HIGH) O2 Sat - 96 % Pain - 0 Performance Status: 0 - Fully active, able to carry on all predisease activities without restrictions. (ECOG) Physical Examination: ENMT - No mouth sores, no thrush, no jaundice, Respiratory - Lungs are clear to auscultation, Cardiovascular - Regular rate and rhythm of heart, Abdomen - Soft, bowel sounds Present, Extremities - No visible edema. 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 0 mitosis noted in 42 high-power [place], very low KI 67 index. No lymphovascular invasion seen, clear surgical margins pT1 (less than 2 cm), it was an incidental finding so no lymph nodes were submitted, NX, stage I Chronic diarrhea, etiology unclear ? biochemically active carcinoid But it was ruled out with a normal biochemical profile eg serotonin, chromogranin A level, gastrin level and 24-hour urine for 5-HIAA was within normal range Hypertension Plan: Discussed with patient regarding his labs serotonin, chromogranin A, gastrin and 24-hour urine 5-HIAA level, came back within normal range so carcinoid being etiology of his diarrhea very unlikely so it could be due to malabsorption or secretory type, patient said he will discuss with his PMD regarding referral to gastroenterology for evaluation if there is a worsening of diarrhea. As per NCCN guidelines well-differentiated subcentimeter carcinoid with clear surgical margins with no lymphovascular involvement, no further testing is needed except CT scan of abdomen pelvis and 1 year. As per patient he is scheduled to see Dr. Pool in 1 year for follow-up colonoscopy and he would request him to get his CT scan of abdomen at the same time. And we will see him on as-needed basis Signed By: Chela Blanco M.D. <<Signature on File>>
== END 2020-05-28 05:41 | disposition home or self-care (01) ==
LOC: ONCMED 05:42
PROVIDERS: PCP Nurse Practitioner; Visit Provider Internal Medicine Hematology & Oncology
DX: C7A.8 Other malignant neuroendocrine tumors (principal); K52.9 Noninfective gastroenteritis and colitis, unspecified; I10 Essential (primary) hypertension
CPT/HCPCS: G0463

== ENCOUNTER → 2020-10-15 08:08 | Outpatient (BNVA) | payer SELFPAY | PROVIDERS: PCP Nurse Practitioner; Visit Provider Nurse Practitioner | DX: E11.65 Type 2 diabetes mellitus with hyperglycemia (principal); E78.2 Mixed hyperlipidemia; I10 Essential (primary) hypertension | CPT/HCPCS: 80053; 80061; 83036; 83721 ==

== ENCOUNTER → 2021-01-26 08:46 | Outpatient (BNVA) | payer SELFPAY | PROVIDERS: PCP Nurse Practitioner; Visit Provider Dermatology | DX: Z01.89 Encounter for other specified special examinations (principal) | CPT/HCPCS: 83721 ==

== ENCOUNTER → 2021-06-03 09:10 | Outpatient (BNVA) | payer SELFPAY | PROVIDERS: PCP Nurse Practitioner; Visit Provider Urology | DX: R39.9 Unspecified symptoms and signs involving the genitourinary system (principal); R97.20 Elevated prostate specific antigen [PSA] | CPT/HCPCS: 81003; 84153 ==

== ENCOUNTER → 2022-01-03 18:04 | Outpatient (BNVA) | payer SELFPAY | PROVIDERS: PCP Nurse Practitioner; Visit Provider Family Medicine | DX: M25.571 Pain in right ankle and joints of right foot (principal); S99.911A Unspecified injury of right ankle, initial encounter; B02.9 Zoster without complications | CPT/HCPCS: 73600 ==

== ENCOUNTER → 2022-01-25 16:31 | Outpatient (BNVA) | payer SELFPAY | PROVIDERS: PCP Nurse Practitioner; Visit Provider Nurse Practitioner | DX: E78.2 Mixed hyperlipidemia (principal); I10 Essential (primary) hypertension; E11.65 Type 2 diabetes mellitus with hyperglycemia | CPT/HCPCS: 80053; 80061; 83036; 83721 ==

== ENCOUNTER → 2022-08-22 08:02 | Outpatient (BNVA) | payer BC, SELFPAY | PROVIDERS: PCP Nurse Practitioner; Visit Provider Nurse Practitioner | DX: E11.65 Type 2 diabetes mellitus with hyperglycemia (principal); E78.2 Mixed hyperlipidemia | CPT/HCPCS: 80053; 80061; 83036; 83721 ==

== ENCOUNTER → 2022-12-13 07:52 | Outpatient (BNVA) | payer BC, SELFPAY | PROVIDERS: PCP Nurse Practitioner; Visit Provider Nurse Practitioner | DX: E11.65 Type 2 diabetes mellitus with hyperglycemia (principal) | CPT/HCPCS: 80053; 80061; 83036 ==

== ENCOUNTER → 2023-03-08 08:36 | Outpatient (BNVA) | payer BC, SELFPAY | PROVIDERS: PCP Nurse Practitioner; Visit Provider Nurse Practitioner | DX: Z12.5 Encounter for screening for malignant neoplasm of prostate (principal); E78.2 Mixed hyperlipidemia; E11.65 Type 2 diabetes mellitus with hyperglycemia | CPT/HCPCS: 80053; 83036; G0103 ==

== ENCOUNTER → 2023-05-24 08:00 | Outpatient (BNVA) | payer BC, SELFPAY | PROVIDERS: PCP Nurse Practitioner; Visit Provider Nurse Practitioner | DX: E11.65 Type 2 diabetes mellitus with hyperglycemia (principal) | CPT/HCPCS: 80053; 80061; 83036 ==

== ENCOUNTER → 2023-08-23 15:55 | Outpatient (BNVA) | payer BC, SELFPAY | PROVIDERS: PCP Nurse Practitioner; Visit Provider Nurse Practitioner | DX: E11.9 Type 2 diabetes mellitus without complications (principal) | CPT/HCPCS: 80053; 80061; 83036 ==

== ENCOUNTER → 2023-11-01 16:15 | Outpatient (BNVA) | payer BC, SELFPAY | PROVIDERS: PCP Nurse Practitioner; Visit Provider Nurse Practitioner | DX: Z12.5 Encounter for screening for malignant neoplasm of prostate (principal); E11.65 Type 2 diabetes mellitus with hyperglycemia | CPT/HCPCS: 80053; 83036; G0103 ==

== ENCOUNTER → 2024-04-17 16:15 | Outpatient (BNVA) | payer BC, SELFPAY | PROVIDERS: PCP Nurse Practitioner; Visit Provider Nurse Practitioner | DX: I10 Essential (primary) hypertension (principal); E11.9 Type 2 diabetes mellitus without complications | CPT/HCPCS: 80053; 80061; 82043; 83036; 83721 ==

== ENCOUNTER → 2024-10-02 15:11 | Outpatient (BNVA) | payer BC, SELFPAY | PROVIDERS: PCP Nurse Practitioner; Visit Provider Nurse Practitioner | DX: E11.65 Type 2 diabetes mellitus with hyperglycemia (principal) | CPT/HCPCS: 80053; 80061; 83036 ==

== ENCOUNTER → 2025-04-17 09:44 | Outpatient (BNVA) | payer BC, SELFPAY | PROVIDERS: PCP Nurse Practitioner; Visit Provider Nurse Practitioner | DX: E11.9 Type 2 diabetes mellitus without complications (principal); E11.65 Type 2 diabetes mellitus with hyperglycemia | CPT/HCPCS: 80053; 80061; 83036 ==